=== PATIENT | female | born 1965 | race African-American/Black ===

== ENCOUNTER 2018-12-23 15:37 | Emergency (ER) | payer OTHER ==
[~2018-12-23] VITALS: Ht 167.6 cm; Wt 82.0 kg
[2018-12-23] MEDS ORDERED: ONDANSETRON HCL 4MG/2ML INJ IV STA (17:08)
[2018-12-23] MEDS ORDERED: SODIUM CHLORIDE 0.9% 1,000 ML IV ONE (17:08)
[2018-12-23] MEDS ORDERED: HYDRALAZINE 20MG/ML VIAL IV ONE ×3 (17:15→21:45)
[2018-12-23 18:18] LABS: BASOPHILS % 0.6 % (0.0-2.0); EOSINOPHILS % 0.4 % (0.0-5.0); HEMOGLOBIN. 15.6 g/dL (12.0-16.0); LYMPHOCYTES % 15.4 % (20.0-50.0); MEAN CORPUSCULAR HEMOGLOBIN 27.1 pg (28.0-32.0); MEAN CORPUSCULAR VOLUME 79.8 fL (81.0-99.0); MEAN PLATELET VOLUME 8.9 fl (7.4-10.4); MONOCYTES % 5.2 % (2.0-8.0); NEUTROPHILS % 78.4 % (40.0-76.0); PLATELET 210 x1000/uL (130-400); RED BLOOD CELL COUNT 5.77 mill/uL (4.2-5.4); RED CELL DISTRIBUTION WIDTH 14.9 % (11.6-14.6)
[2018-12-23 18:24] LABS: CHLORIDE 108 mEq/L (98-107)
[2018-12-23] MEDS ORDERED: ASPIRIN 325MG TABLET PO ONE (21:45)
[2018-12-23 23:44] VITALS: BP 185/117
== END 2018-12-24 00:28 | disposition short-term general hospital (02) ==
LOC: ER 15:37 → CANBEDREQ 12-24 02:24
DX: I21.4 Non-ST elevation (NSTEMI) myocardial infarction (principal); I10 Essential (primary) hypertension; R19.7 Diarrhea, unspecified
CPT/HCPCS: 36415; 70450; 71045; 80053; 83690; 84484; 85025; 93005; 96361; 96374; 96375; 96376; 99285; J0360; J2405; J7030

== ENCOUNTER 2020-09-14 13:37 | Emergency (ER) | payer OTHER ==
[~2020-09-14] VITALS: Ht 162.6 cm; Wt 73.0 kg
[2020-09-14 15:11] LABS: BASOPHILS % 0.6 % (0.0-2.0); EOSINOPHILS % 0.3 % (0.0-5.0); HEMATOCRIT. 45.1 % (36.0-48.0); HEMOGLOBIN. 15.1 g/dL (12.0-16.0); LYMPHOCYTES % 11.4 % (20.0-50.0); MEAN CORPUSCULAR HEMOGLOBIN 27.2 pg (28.0-32.0); MEAN CORPUSCULAR VOLUME 81.1 fL (81.0-99.0); MEAN PLATELET VOLUME 9.4 fl (7.4-10.4); MONOCYTES % 3.3 % (2.0-8.0); NEUTROPHILS % 84.4 % (40.0-76.0); PLATELET 237 x1000/uL (130-400); RED BLOOD CELL COUNT 5.56 mill/uL (4.2-5.4); RED CELL DISTRIBUTION WIDTH 14.4 % (11.6-14.6)
[2020-09-14 15:25] LABS: CHLORIDE 113 mEq/L (98-107)
[2020-09-14 15:29] LABS: ETHANOL BLOOD < 10 mg/dL
[2020-09-14] MEDS ORDERED: SODIUM CHLORIDE 0.9% 250 ML IV ONE (16:30)
[2020-09-14] MEDS ORDERED: ASPIRIN 325MG EC TABLET PO NR (16:30)
[2020-09-14] MEDS ORDERED: HYDRALAZINE HCL 100MG TABLET PO ONE (17:45)
[2020-09-14] MEDS ORDERED: METOPROLOL TARTRATE 50MG TABLET PO ONE (17:45)
[2020-09-14] MEDS ORDERED: AMLODIPINE 10MG TABLET PO ONE (17:45)
[2020-09-14 18:46] VITALS: BP 179/100
[2020-09-14] MEDS ORDERED: HYDRALAZINE 20MG/ML VIAL IV ONE (19:15)
[2020-09-14] MEDS ORDERED: ONDANSETRON HCL 4MG/2ML INJ IV ONE (19:15)
== END 2020-09-14 18:48 | disposition short-term general hospital (02) ==
LOC: ER 13:37 → CANBEDREQ 09-15 15:44
DX: R55 Syncope and collapse (principal); R77.8 Other specified abnormalities of plasma proteins; I10 Essential (primary) hypertension; E87.70 Fluid overload, unspecified; R74.01 Elevation of levels of liver transaminase levels; E87.2 Acidosis; Z86.73 Personal history of transient ischemic attack (TIA), and cerebral infarction without residual deficits
CPT/HCPCS: 36415; 70450; 71045; 80053; 80320; 83605; 83690; 83880; 84484; 85025; 86850; 86900; 86901; 93005; 96361; 96374; 96375; 99285; J0360; J2405; G0480